=== PATIENT | female | born 1960 | race Caucasian/White ===

== ENCOUNTER 2025-01-24 14:58 | Inpatient (IN) | payer MEDICARE, OTHER ==
[~2025-01-24] VITALS: Ht 170.2 cm; Wt 89.1 kg
[2025-01-24 14:47] VITALS: BP 154/74; PULSE 84; RESP 17; TEMP 96.4; O2SAT 96
[2025-01-24 15:30] VITALS: RESP 17; O2SAT 96
[2025-01-24] MEDS ORDERED: LEVO200T8 PO (15:45)
[2025-01-24] MEDS ORDERED: INSU100V49 SQ (15:45)
[2025-01-24] MEDS ORDERED: METO-395 PO (15:45)
[2025-01-24] MEDS ORDERED: LANTUS SQ (15:45)
[2025-01-24] MEDS ORDERED: INSU100V10 SQ (15:45)
[2025-01-24] MEDS ORDERED: ASPI-1265 PO (16:06)
[2025-01-24] MEDS ORDERED: LOSA50TA64 PO (16:06)
[2025-01-24] MEDS: ondansetron/PF 4mg/2ml inj IV PRN (16:49)
[2025-01-24] MEDS ORDERED: glucagon, human recombinant 1mg kit SUBCUT PRN (18:00)
[2025-01-24] MEDS ORDERED: dextrose 50%-water 50ml dispensing syringe IV PRN ×2 (18:00)
[2025-01-24] MEDS ORDERED: DEXTROSE 15 GM of carb/4 tabs (each vial/BOTTLE has 4 tablets) PO PRN ×2 (18:00)
[2025-01-24] MEDS ORDERED: ondansetron/PF 4mg/2ml inj IV PRN (18:25)
[2025-01-24] MEDS ORDERED: HYDROcodone/acetaminophen 5mg/325mg tablet PO PRN (18:25)
[2025-01-24] MEDS ORDERED: mag hydrox/Alum hydrox/simeth 30ml oral suspension PO PRN (18:25)
[2025-01-24] MEDS ORDERED: ondansetron 4mg rapidly disintigrating tab PO PRN (18:25)
[2025-01-24] MEDS ORDERED: bisacodyl 10mg suppository rectal RC PRN (18:25)
[2025-01-24] MEDS ORDERED: magnesium sulf-water 2g/50mL 50 ML IV PRN (18:25)
[2025-01-24] MEDS ORDERED: potassium Cl 40MEQ/1/2NS 520ml 520 ML IV PRN (18:25)
[2025-01-24] MEDS ORDERED: HYDROcodone/acetaminophen 10/325mg tab PO PRN (18:25)
[2025-01-24] MEDS ORDERED: magnesium Cl slow-release 64mg tablet PO PRN (18:25)
[2025-01-24] MEDS ORDERED: potassium Cl 20 mEq SR tablet PO PRN (18:25)
[2025-01-24] MEDS ORDERED: magnesium hydroxide 30ml (MOM) UD suspension PO PRN (18:25)
[2025-01-24] MEDS ORDERED: acetaminophen 650mg rectal suppository RC PRN (18:25)
[2025-01-24] MEDS ORDERED: magnesium sulf-water 4G/100mL 100 ML IV PRN (18:25)
[2025-01-24] MEDS ORDERED: sodium phosphate inj. 15 MMOL in dextrose 5%-water 250 ML IV PRN (18:30)
--- NOTE | 2025-01-24 18:38 | HISTORY AND PHYSICAL ---
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 Yesterday she was admitted to [facility], with diagnosis non-STEMI, diabetes mellitus noncontrolled, DKA, treated for this abnormalities, now patient is out of DKA, and she was transferred here for further evaluation and treatment regarding non- STEMI , today patient she was evaluated in our hospital by stockroom inventory clerk Dr. GIRON, and scheduled for cardiac catheterization in the morning. No shortness a breath no chest pain now no nausea no vomiting, she has history of hypothyroidism recent TSH normal, and chronic kidney disease secondary to diabetes mellitus, no history of cardiac surgeries or stents, she is on aspirin at home, has history of hypertension poor control. No additional complaint or concern. Allergies: Coded Allergies: chlorhexidine (Unverified Allergy, Severe, 01/24/25) chlorhexadine containing compounds per patient chloroquine (Unverified Allergy, Unknown, loss of vision, 01/24/25) diazepam (Unverified Allergy, Unknown, hallucinations, 01/24/25) docetaxel (Unverified Allergy, Unknown, 01/24/25) fluorouracil (Unverified Allergy, Unknown, 01/24/25) Active prescriptions I reviewed reconciled Home Medications Home Medications Active Reported Aspirin 81 Mg Tab.chew 1 Tab PO DAILY 30 Days Per pt takes every Wednesday, Wednesday, Wednesday AM Losartan Potassium 50 Mg Tablet 1 Tab PO DAILY Levothyroxine Sodium 200 Mcg Tablet 1 Tab PO QAM Insulin Lispro 100 Unit/Ml Vial 50 Units SQ DAILY per pt. and DON @ [facility] pttakes short acting insulin Per carb count;0 units for BS <100 BS 100 and > 1 unit short acting insulin for every 50 points over 150 and administer 1 unit of short acting insulin for every 10 gm of carbs eaten. Apidra (Insulin Glulisine) Unknown Strength Vial Unknown Dose SQ DAILY pt. states no longer taking Metoprolol Succinate 25 Mg Tab.sr.24h 1 Tab PO DAILY Lantus* (Insulin Glargine) 100 Unit/1 Ml Vial 20-25 Units SQ QAM pt. states she takes 19 units qam Past Medical History Past Medical History As in HPI Past Surgical History Surgical History Comment As in [facility] Past Social History Social History Comment No history of illicit drug use, no smoking no alcohol use, live with the family good social support Health Maintenance Health Maintenance Noncontributory ROS ROS Constitutional : no fever , no chills, or weakness. No diaphoresis. Allergic/Immunologic, no lymphadenopathy, no hives, no skin eruptions. Eyes, no recent visual changes, no eye pain, no photophobia. Ears, nose, mouth, throat, positive for sore throat, no nosebleed, no ear pain. Cardiovascular, no palpitations, skipped beats, chest pain, no peripheral edema, Respiratory, no dyspnea, orthopnea, cough, hemoptysis, chest wall pain. Gastrointestinal, no abdominal pain, nausea, vomiting, constipation or diarrhea. : no dysuria, hematuria, pelvic pain, urethral d/c. Endocrine, no polyuria, polydipsia, recent unintentional weight gain or loss. Hematologic/Lymphatic, no petechiae, no enlarged lymph nodes, no bone pain. Integumentary, no rash, no skin lesions, Musculoskeletal, no muscle aches, or pain, no muscle cramps, no recent change in gait Neurological, no dizziness, no headache, no syncope, no paresthesia. Psychiatric, no delusions, visual hallucinations, or hearing hallucinations. ROS - in rest is as in [facility]. Exam Vitals: Vital Signs Date Time Temp Pulse Resp B/P (MAP) Pulse Ox O2 Delivery O2 Flow Rate FiO2 01/24/25 15:12 83 01/24/25 14:47 96.4 17 154/74 (100) 96 Room Air Vital signs, stable ,afebrile. Pulse Oximetry reflects adequate oxygenation. General: well developed, well nourished. Awake , alert, and oriented x4, resting comfortably in the bed, in no acute distress . Skin: Warm, dry, no pallor, no rash or petechiae. HEENT: Atraumatic, normocephalic, EOMI, anicteric sclera B; pink conjunctiva; PERRLA, normal oropharynx, moist oral and nasal mucosa. Tympanic membrane , nose , throat clear. Neck: Trachea midline. Supple, full range of motion, no JVD, bruit , hepatojugular reflex , lymphadenopathy or masses, or other lesions Cardiac: Regular rhythm, regular rate no murmurs, rubs, or gallops. Normal S1 and S2, no S3 noticed. PMI is normal. Respiratory: Equal breath sounds bilaterally, no tachypnea; lungs clear to auscultation bilaterally, no wheezing ,rub or rales, or crackles. Chest wall is symmetric and without deformity. No signs of trauma. Chest wall is nontender. No signs of respiratory distress. Resonance is normal upon percussion bilaterally. Gastrointestinal: Abdomen symmetric, non-distended, soft, non-tender, normal bowel sounds x4 quadrant, normoactive, no hepatosplenomegaly , no masses , no bruit, no flank pain bilaterally. No voluntary guarding, rebound, or rigidity. No tenderness to percussion. No pulsatile masses. Equal femoral pulses. No Hanley's sign or McBurney point tenderness. Back; no CVA tenderness bilaterally, no deformities. Neck and back are without deformity as well. No tenderness noted on palpation of the spinous processes. Spinous processes are midline. Cervical, thoracic, and lumbar paraspinal muscles are not tender and are without spasm. : Not indicated Musculoskeletal: Extremities, normal range of motion, non-tender, muscle strength 5/5 x 4. Negative Homans signs bilaterally on lower extremity. Distal pulses full symmetrical, no clubbing, cyanosis , edema. Neurological: Speech is clear, alert, and oriented x 4. No motor or sensory deficit, deep tendon reflexes normal, cerebellar intact. Cranial nerves II-XII intact. Psych: Alert and or appropriate, normal affect. Vascular: Good distal pulses, which are equal x4; capillary refill less than 2 seconds. Lymphatic, no lymphadenopathy. Advance Care Planning Advanced Care plannin - 30 Minutes Additional Plan Assessment Non-STEMI Hypertension poor control Diabetes mellitus poor control Status post recent DKA, resolved now Hypothyroidism good control Hypophosphatemia Chronic kidney disease secondary to diabetes mellitus Plan Patient scheduled for cardiac catheterization in the morning by Dr. GIRON She is on aspirin statin heparin prophylactic dose PT evaluation and treatment Replace electrolytes Hyperglycemia sliding scale I reconciled home medications Control blood pressure DVT gastropathy prophylaxis addressed Sepsis Screening Reassessment Date: Jan 24, 2025 Date of Service: Jan 24, 2025 Billing Provider: JANETT SINGH MD Common Visit Codes: [id number] INP/OBS CARE (HIGH) JANETT SINGH MD Jan 24, 2025 18:38
[2025-01-24] MEDS: heparin, porcine 5000 units/ml vial SQ SCH (19:26)
[2025-01-24] MEDS: K and/or MAG REPLACEMENT MC SCH (19:26)
[2025-01-24] MEDS: HALLS - SOOTHE MENTHOL 1.8 MG cough drop LOZENGE MM PRN (19:32)
[2025-01-24] MEDS: normal saline 1000ml 1,000 ML IV SCH (19:32)
[2025-01-24] MEDS: docusate sod 100mg capsule PO SCH (19:33)
[2025-01-24 20:00] VITALS: RESP 11; O2SAT 93
[2025-01-24] MEDS: INSULIN LISPRO 100 UNIT/ML INSULN.PEN MULTI-DOSE SQ SCH (21:02)
[2025-01-24 22:00] VITALS: BP 147/67; PULSE 86; RESP 11; TEMP 97.6; O2SAT 93
[2025-01-24] MEDS: insulin glargine (Lantus) pen - multi-dose SQ SCH (22:33)
[2025-01-25] VITALS (15 sets, daily range): BP systolic 151–181; BP diastolic 65–140; PULSE 70–88; RESP 11–16; TEMP 97.4–98; O2SAT 94–96
[2025-01-25 06:55] LABS: APTT 25 SECONDS (22-32); INR 1.0 INR
[2025-01-25 06:58] LABS: MEAN PLATELET VOLUME 8.0 FL (7.4-10.4); RED CELL DISTRIBUTION WIDTH 15.7 % (11.5-14.5)
[2025-01-25 07:20] LABS: CHOL/HDL RATIO 3.6 (0.00-4.99); CREATININE 0.67 MG/DL (0.40-0.90); LDL CHOLESTEROL 60 MG/DL (50-100); PHOSPHORUS 1.4 MG/DL (2.3-4.5); PRO BRAIN NATRIURETIC PEPTIDE 1121 PG/ML (0-125); TOTAL CARBON DIOXIDE 20.5 MMOL/L (24-32); eCRCL 80 ML/MIN; eGFR 88 ML/MIN
[2025-01-25] MEDS: pantoprazole 40mg Tablet.DR PO SCH (08:00)
[2025-01-25] MEDS: metoprolol succinate 25mg (24-HOUR) SR. Tablet PO SCH (08:21)
--- NOTE | 2025-01-25 08:25 | CONSULTATION ---
DATE OF CONSULTATION: 01/24/2025 DICTATING PHYSICIAN: ANA LUISA GOLD DO CLINICAL HISTORY: This 64-year-old woman has been transferred from [facility] in [place] for further cardiac evaluation. She was admitted on 01/22/2025 because of diabetic ketoacidosis. She is a known type 1 diabetic, first diagnosed at age 43. She has recently been placed on a continuous insulin pump, but apparently the pump failed resulting in an admitting blood sugar of greater than 700. She has had excellent care for her diabetic problem, which has consisted of generous hydration and continuous low-flow insulin infusion until very recent switch over to intermittent subcutaneous insulin dosing. During her hospitalization, she has not experienced chest pain and there is no prior history of a cardiac disorder but serial cardiac enzymes reveal an increase in troponin to approximately 2.5. For that reason, she was transferred to this facility for further evaluation. ALLERGIES: SHE HAS MULTIPLE ALLERGIES WHICH INCLUDE CHLORHEXIDINE (DYSPNEA), CHLOROQUINE, DIAZEPAM (CAUSING HALLUCINATIONS), DOCETAXEL AND FLUOROURACIL (THE LATTER TWO BOTH CAUSING ANAPHYLAXIS). PAST MEDICAL AND SURGICAL HISTORY: She had an appendectomy as a child. She had a foreign body removed from the right leg as a child and she has been treated for left breast cancer 7 years ago. Treatment consisted of lumpectomy and radiation. SOCIAL HISTORY: Nonsmoker, nondrinker. REVIEW OF SYSTEMS: Otherwise unremarkable. PHYSICAL EXAMINATION: VITAL SIGNS: The most recent vital signs were blood pressure of 154/74, pulse 84, respiratory rate 17 and temperature 96.4. GENERAL APPEARANCE: An alert, cooperative woman who is somewhat more sedate than usual due to fatigue from hospitalization. HEENT: Pupils most likely reactive to light. Extraocular muscles intact. NECK: No obvious JVD. CARDIAC: No murmurs, gallops or rubs. CHEST: Clear to auscultation. ABDOMEN: Nontender. EXTREMITIES: No history of any edema. DIAGNOSTIC DATA: ECG is pending. LABORATORY DATA: Most recent blood sugar in the 100s. Her acidosis has been corrected. ASSESSMENT: * Recent DKA, now essentially controlled/managed optimally. * Elevation of troponin, which is small in size and may very well be underwriting sales representative of a type 2 [place] wherein physiologic stress is responsible for an "enzyme leak." PLAN: The patient will continue to receive hydration including a bicarbonate infusion prior to cardiac catheterization, which will most likely be performed sometime on 01/25/2025. ANA LUISA GOLD DO TID: [id number] RECEIPT: [id number] RIGOBERTO
[2025-01-25] MEDS: levoTHYROXINE 100mcg tablet PO SCH (09:26)
[2025-01-25] MEDS: sodium phosphate inj. 30 MMOL in dextrose 5%-water 250 ML IV PRN (11:27)
[2025-01-25] MEDS: vancomycin/NS 1 GM ADD-VANTAGE 250 ML IV SCH (12:00)
[2025-01-25] MEDS: ceFAZolin/D5W- 1GM premix 50 ML IV SCH (15:05)
--- NOTE | 2025-01-25 16:06 | PROGRESS NOTE ---
Daily Progress Note Providers to CC ~ no new complaint today resting comfortably in the bed Central Line/PICC still needed: No Heredia-Non Protocol Heredia Indications Met/Not Met: F/C Indications Not Met Antibiotic Timeout Antibiotic Ordered?: Yes MRSA Education MRSA Education Provided to pt: Yes Subjective As above Objective Vital Signs Date Time Temp Pulse Resp B/P (MAP) Pulse Ox O2 Delivery O2 Flow Rate FiO2 01/25/25 08:00 Room Air 01/25/25 06:00 98.0 81 12 166/81 (109) 95 Vital signs, stable ,afebrile. Pulse Oximetry reflects adequate oxygenation. General: well developed, well nourished. Awake , alert, and oriented x4, resting comfortably in the bed, in no acute distress . Skin: Warm, dry, no pallor, no rash or petechiae. HEENT: Atraumatic, normocephalic, EOMI, anicteric sclera B; pink conjunctiva; PERRLA, normal oropharynx, moist oral and nasal mucosa. Tympanic membrane , nose , throat clear. Neck: Trachea midline. Supple, full range of motion, no JVD, bruit , hepatojugular reflex , lymphadenopathy or masses, or other lesions Cardiac: Regular rhythm, regular rate no murmurs, rubs, or gallops. Normal S1 and S2, no S3 noticed. PMI is normal. Respiratory: Equal breath sounds bilaterally, no tachypnea; lungs clear to auscultation bilaterally, no wheezing ,rub or rales, or crackles. Chest wall is symmetric and without deformity. No signs of trauma. Chest wall is nontender. No signs of respiratory distress. Resonance is normal upon percussion bilaterally. Gastrointestinal: Abdomen symmetric, non-distended, soft, non-tender, normal bowel sounds x4 quadrant, normoactive, no hepatosplenomegaly , no masses , no bruit, no flank pain bilaterally. No voluntary guarding, rebound, or rigidity. No tenderness to percussion. No pulsatile masses. Equal femoral pulses. No Hanley's sign or McBurney point tenderness. Back; no CVA tenderness bilaterally, no deformities. Neck and back are without deformity as well. No tenderness noted on palpation of the spinous processes. Spinous processes are midline. Cervical, thoracic, and lumbar paraspinal muscles are not tender and are without spasm. Musculoskeletal: Extremities, normal range of motion, non-tender, muscle strength 5/5 x 4. Negative Homans signs bilaterally on lower extremity. Distal pulses full symmetrical, no clubbing, cyanosis , edema. Neurological: Speech is clear, alert, and oriented x 4. No motor or sensory deficit, deep tendon reflexes normal, cerebellar intact. Cranial nerves II-XII intact. Psych: Alert and or appropriate, normal affect. Vascular: Good distal pulses, which are equal x4; capillary refill less than 2 seconds. Lymphatic, no lymphadenopathy. Result Diagram: 01/25/25 0625 01/25/25 0625 Coagulation Studies Laboratory Tests Test 01/25/25 06:25 Prothrombin Time 10.1 SECONDS (9.0-12.0) INR International Normalized Ratio 1.0 INR Activated Partial Thromboplast Time 25 SECONDS (22-32) Coagulation Comments Problem\Assessment\Plan Assessment Non-STEMI Blood culture positive for staph infection Hypertension poor control Diabetes mellitus poor control Status post recent DKA, resolved now Hypothyroidism good control Hypophosphatemia Chronic kidney disease secondary to diabetes mellitus Plan Patient scheduled for cardiac catheterization today by Dr. GIRON She is on aspirin heparin prophylactic dose Patient allergic to statin Started on IV antibiotics, infectious disease doctor consultation pending PT evaluation and treatment Replace electrolytes Hyperglycemia sliding scale I reconciled home medications Control blood pressure DVT gastropathy prophylaxis addressed Sepsis Screening Reassessment Date: Jan 25, 2025 Date of Service: Jan 25, 2025 Billing Provider: JANETT SINGH MD Common Visit Codes: [id number] INP/OBS CARE(HIGH) JANETT SINGH MD Jan 25, 2025 16:06
[2025-01-25] MEDS ORDERED: verapamil 2.5 mg/ml inj IV ONE (16:16)
[2025-01-25] MEDS ORDERED: LIDOcaine 1% (10mg/ml) 2ml vial ONE (16:16)
[2025-01-25] MEDS ORDERED: midazolam 1 mg/ML 2ml injection ONE ×2 (16:17→17:45)
[2025-01-25] MEDS ORDERED: heparin 1,000unit/ml 10ml vial 10 ML ONE (16:17)
[2025-01-25] MEDS ORDERED: fentaNYL/PF 50MCG/1 ML 2ML syringe ONE (16:17)
[2025-01-25] MEDS ORDERED: nitroGLYCERIN 500mcg/5mL D5W 5 ML IV ONE (16:17)
[2025-01-25] MEDS ORDERED: iohexol 350 MG/ML 50ML vial IV ONE ×2 (16:17→17:48)
[2025-01-25] MEDS: sodium bicarbonate 1meq/ml inj 150 ML in dextrose 5%-water 1,000 ML IV SCH (16:36)
[2025-01-25] MEDS ORDERED: ondansetron/PF 4mg/2ml inj IV PRN (18:55)
[2025-01-25] MEDS: hydrALAZINE 20mg/ml inj. IV ONE (19:51)
[2025-01-25] MEDS: ondansetron/PF 4mg/2ml inj IV PRN (20:50)
[2025-01-26 02:00] VITALS: BP 136/52; PULSE 73; RESP 18; TEMP 97.6; O2SAT 98
[2025-01-26 02:15] VITALS: BP 136/52; PULSE 73; RESP 18; TEMP 97.6; O2SAT 98
[2025-01-26 06:00] VITALS: BP 162/80; PULSE 76; RESP 18; TEMP 97.3; O2SAT 95
[2025-01-26 06:24] LABS: MEAN PLATELET VOLUME 7.9 FL (7.4-10.4); RED CELL DISTRIBUTION WIDTH 15.1 % (11.5-14.5)
[2025-01-26 06:49] LABS: CREATININE 0.47 MG/DL (0.40-0.90); PHOSPHORUS 1.6 MG/DL (2.3-4.5); TOTAL CARBON DIOXIDE 26.0 MMOL/L (24-32); eCRCL 115 ML/MIN; eGFR > 90 ML/MIN
[2025-01-26 07:43] VITALS: RESP 18; O2SAT 95
[2025-01-26 07:46] VITALS: BP_SYST 162; PULSE 72
[2025-01-26] MEDS: potassium Cl 20 mEq SR tablet PO PRN (07:46)
--- NOTE | 2025-01-26 09:36 | PROGRESS NOTE ---
Progress Note Cardiology Providers to CC ~ Subjective Subjective No CP Objective Result Diagram: 01/26/25 0550 01/26/25 0550 Objective VSS Coagulation Studies Laboratory Tests Test 01/25/25 06:25 Prothrombin Time 10.1 SECONDS (9.0-12.0) INR International Normalized Ratio 1.0 INR Activated Partial Thromboplast Time 25 SECONDS (22-32) Coagulation Comments Problem\Assessment\Plan Additional Plan Doing well KCl being given Home this AM Med regimen discussed with patient. ANA LUISA GOLD DO Jan 26, 2025 09:36
[2025-01-26] MEDS ORDERED: POTA-205 PO (09:45)
[2025-01-26] MEDS ORDERED: ONDA-243 PO (09:45)
[2025-01-26] MEDS ORDERED: TICA90TA PO (09:45)
[2025-01-26] MEDS ORDERED: CLOP-32 PO (09:45)
[2025-01-26] MEDS: potassium Cl 20 mEq SR tablet PO ONE (10:52)
--- NOTE | 2025-01-26 13:16 | CARDIOLOGY REPORT ---
DATE OF SERVICE: 01/25/2025 DICTATING PHYSICIAN: ANA LUISA GOLD, DO CARDIAC CATHETERIZATION REPORT CLINICAL HISTORY: This 64-year-old woman with no prior history of coronary problems was admitted earlier this week for diabetic ketoacidosis. She has never had that problem in the past but has been a type 1 diabetic since age 43. She has recently been placed on a diabetic pump which was dysfunctional, prompting her DKA which has now been corrected and appropriately managed. During the early phase of her hospitalization, she had serial cardiac enzymes drawn and her troponin was elevated to 2.5. She has not had chest pain, but because of her long history of diabetes and the presence of an elevated troponin, a decision was made to proceed to left heart catheterization. PROCEDURES PERFORMED: * Left heart catheterization. * Left ventriculography. * Selective coronary arteriography. * PTCA/stent placement. * One hour and 15 minutes conscious sedation supervision. DESCRIPTION OF PROCEDURE: The patient was sedated with fentanyl and Versed. She was then prepared and draped in the usual manner. The right radial area was infiltrated with 1% lidocaine using a micropuncture set in a Seldinger technique. A 6-Ethiopian sheath was placed in the radial artery. Nitroglycerin 200 mcg and 2.5 mg of verapamil were directly injected into the radial artery. Heparin 5,000 units were given in a peripheral IV. Left heart catheterization and left ventriculography were performed using a 6-Ethiopian Pigtail catheter. Coronary arteriography was performed using a 6-Ethiopian Kimny catheter. PTCA/STENT PLACEMENT: The patient was given an additional 5,000 units of heparin. A 6-Ethiopian 3.5 XB LAD guiding catheter was placed in the left coronary ostium. A Choice PT2 guidewire was passed down through a stenosis in the mid LAD and the tip was positioned distally. A 2.75 x 20 mm Joanna Floriston drug-eluting stent was positioned across the area of narrowing and lesser degree of narrowing above and below the stenosis. Just as the balloon was about to be inflated, it was inadvertently pulled back into the left main and into the proximal LAD. It was deployed in this location and appeared to be satisfactorily opposed in this area. The guidewire was retained and a second 2.75 x 20 mm drug-eluting stent was positioned across the mid LAD stenosis and deployed at 18 atmospheres. Test injections demonstrated full inflation of the stent and no residual stenosis and brisk runoff distally. The inadvertently proximally placed stent was postdilated with a 3 x 15 mm balloon inflated to 10 atmospheres in an overlapping fashion. There appeared to be excellent apposition in all areas. Since this overlapped the origin of the circumflex coronary artery, the guidewire was withdrawn and passed into the circumflex, and the orifice of the circumflex was dilated at 4 atmospheres with a 3.5 x 8 mm balloon. Final arteriography was performed. The arterial sheath was removed and Vasc band was applied. RESULTS: Hemodynamic data of the left ventricular and diastolic pressure was 14 mmHg. There was no gradient across the aortic valve. LEFT VENTRICULOGRAM: The left ventriculogram was technically satisfactory. The ejection fraction appeared to be about 65%. Calcium was visible in the proximal LAD. CORONARY ARTERIOGRAPHY: The coronary arteriograms are technically satisfactory. The patient had a right dominant system. RIGHT CORONARY ARTERY: The right coronary artery was a medium-sized main stem vessel. There was a medium-sized posterior descending branch and one small posterolateral branch. There were no obstructive lesions in the right coronary artery. LEFT MAIN CORONARY ARTERY: The left main was a large unobstructed vessel bifurcating into left anterior descending and circumflex coronary arteries. LEFT ANTERIOR DESCENDING CORONARY ARTERY: The LAD was a medium-sized vessel with a [id number]-sized diagonal branch which took its origin from the mid LAD. Further downstream in the mid LAD, there was a 70% to 90% stenosis with a 90% narrowing being at the far end of the narrowing. The principal diagonal appeared to be narrowed by about 40% at its origin, but there were no other high-grade stenoses in the LAD other than that observed in the mid mainstem vessel. CIRCUMFLEX CORONARY ARTERY: The circumflex was a large main stem vessel. There was a very large bifurcated obtuse marginal branch and two very small posterolateral branches. There were no obstructive lesions in the circumflex coronary artery. PTCA/STENT PLACEMENT: After ultimately stenting the mid LAD stenosis, there was no significant residual stenosis and brisk runoff distally. After deployment of the stent in the proximal circ and distal left main, and after post dilating with a 3.5 mm balloon, there was no significant residual stenosis, and after dilating the ostium of the circumflex coronary artery, there was no obvious residual stenosis in that location either. CONCLUSIONS: * Obstructive coronary artery disease principally manifested as a 70% to 90% stenosis in the mid LAD and about a 40% narrowing at the origin of a large bifurcated principal LAD diagonal. * Successful stent placement across the mid LAD stenosis. Following deployment, there was no significant residual stenosis and brisk runoff distally. [place] flow was graded as 3 before and afterwards. After deployment and post dilation of the distal left main/proximal LAD, there was no significant residual stenosis, and the stent appeared to be well apposed in all areas. Following balloon dilation of the circumflex ostium, there was no significant residual stenosis and brisk runoff distally. * Left ventricular function was normal. Estimated LVEF was 65%. PLAN: Ongoing medical therapy. ANA LUISA GOLD DO TID: [id number] RECEIPT: [id number] SHONDA/SHARITA
--- NOTE | 2025-01-26 19:02 | DISCHARGE SUMMARY ---
Discharge Summary Providers to CC No new complaint today cleared by profile trimmer to go home ~ Discharge Summary Assessment Non-STEMI, status post cardiac catheterization, stent placement Hypertension poor control Diabetes mellitus poor control Status post recent DKA, resolved now Hypothyroidism good control Hypophosphatemia Chronic kidney disease secondary to diabetes mellitus Admission Diagnosis: NSTEMI DM Admission Diagnosis Comment: Non-STEMI, status post cardiac catheterization, stent placement Hypertension poor control Diabetes mellitus poor control Status post recent DKA, resolved now Hypothyroidism good control Hypophosphatemia Chronic kidney disease secondary to diabetes mellitus Hospital Course DATE OF ADMISSION: January 24, 2025 DATE OF DISCHARGE: January 26, 2025 Discharge Diagnosis\Comment: Non-STEMI, status post cardiac catheterization, stent placement Hypertension poor control Diabetes mellitus poor control Status post recent DKA, resolved now Hypothyroidism good control Hypophosphatemia Chronic kidney disease secondary to diabetes mellitus Operations\Procedures: Cardiac catheterization stent placement Consultants: [employer] Dr. 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 Yesterday she was admitted to [facility], with diagnosis non-STEMI, diabetes mellitus noncontrolled, DKA, treated for this abnormalities, now patient is out of DKA, and she was transferred here for further evaluation and treatment regarding non- STEMI , today patient she was evaluated in our hospital by profile trimmer Dr. NELI BELTRAN, and scheduled for cardiac catheterization in the morning. No shortness a breath no chest pain now no nausea no vomiting, she has history of hypothyroidism recent TSH normal, and chronic kidney disease secondary to diabetes mellitus, no history of cardiac surgeries or stents, she is on aspirin at home, has history of hypertension poor control. No additional complaint or concern. After admission patient was extensively evaluated and treated including cardiac catheterization stent placement today she was cleared by profile trimmer for discharge, medication reconciled, today on physical exam Vital signs, stable ,afebrile. Pulse Oximetry reflects adequate oxygenation. General: well developed, well nourished. Awake , alert, and oriented x4, resting comfortably in the bed, in no acute distress . Skin: Warm, dry, no pallor, no rash or petechiae. HEENT: Atraumatic, normocephalic, EOMI, anicteric sclera B; pink conjunctiva; PERRLA, normal oropharynx, moist oral and nasal mucosa. Tympanic membrane , nose , throat clear. Neck: Trachea midline. Supple, full range of motion, no JVD, bruit , hepatojugular reflex , lymphadenopathy or masses, or other lesions Cardiac: Regular rhythm, regular rate no murmurs, rubs, or gallops. Normal S1 and S2, no S3 noticed. PMI is normal. Respiratory: Equal breath sounds bilaterally, no tachypnea; lungs clear to auscultation bilaterally, no wheezing ,rub or rales, or crackles. Chest wall is symmetric and without deformity. No signs of trauma. Chest wall is nontender. No signs of respiratory distress. Resonance is normal upon percussion bilaterally. Gastrointestinal: Abdomen symmetric, non-distended, soft, non-tender, normal bowel sounds x4 quadrant, normoactive, no hepatosplenomegaly , no masses , no bruit, no flank pain bilaterally. No voluntary guarding, rebound, or rigidity. No tenderness to percussion. No pulsatile masses. Equal femoral pulses. No Hanley's sign or McBurney point tenderness. Back; no CVA tenderness bilaterally, no deformities. Neck and back are without deformity as well. No tenderness noted on palpation of the spinous processes. Spinous processes are midline. Cervical, thoracic, and lumbar paraspinal muscles are not tender and are without spasm. Musculoskeletal: Extremities, normal range of motion, non-tender, muscle strength 5/5 x 4. Negative Homans signs bilaterally on lower extremity. Distal pulses full symmetrical, no clubbing, cyanosis , edema. Neurological: Speech is clear, alert, and oriented x 4. No motor or sensory de ficit, deep tendon reflexes normal, cerebellar intact. Cranial nerves II-XII intact. Psych: Alert and or appropriate, normal affect. Vascular: Good distal pulses, which are equal x4; capillary refill less than 2 seconds. Lymphatic, no lymphadenopathy. *Problems/Diagnosis: (1) NSTEMI (non-ST elevated myocardial infarction) Total Time Spent on D/C: > 30 Minutes Date of Service: Jan 26, 2025 Billing Provider: JANETT SINGH MD Common Visit Codes: 21187-KBA/OBS DISCH DAY >30min JANETT SINGH MD Jan 26, 2025 19:02
--- NOTE | 2025-01-26 20:28 | DISCHARGE SUMMARY ---
DATE OF DISCHARGE: 01/26/2025 DICTATING PHYSICIAN: CEDRIC GOLD DO ADMITTING DIAGNOSES: * Non-ST elevation myocardial infarction. * Recent diabetic ketoacidosis. * Diabetes mellitus. PROCEDURES PERFORMED: Left heart catheterization with PTCA/stent placement. CONSULTATIONS: Cedric Gold DO COMPLICATIONS: None. CONDITION AT DISCHARGE: Stable. CLINICAL HISTORY: This 64-year-old woman has recently been placed on an insulin pump and due to a malfunction of the device, she developed marked hyperglycemia and subsequent diabetic ketoacidosis. She was initially admitted at [facility] in [place], but then transferred on 01/24 to [facility]. The ketoacidosis had at that point been very nicely managed and she was stable. Serial cardiac enzymes were obtained during her hospitalization in [place]. She had an elevation of standard sensitivity troponin to 2.5. She did not experience chest pain or EKG changes, but because of the troponin and because of known diabetes since age 43, a decision was made to transfer the patient and perform a left heart catheterization. The catheterization was performed on 01/25/2025. The ejection fraction was 65%. There was a 70-90% stenosis in the mid LAD, a nonobstructive lesion at the origin of a large LAD diagonal. She had successful stenting of the mid LAD narrowing. There was an inadvertent pullback of a first stent that was deployed in the distal left main and proximal LAD, but it was dilated up to the size of the vessel without difficulty and there were no untoward events as a result of this occurrence. The remainder of her hospitalization was unremarkable and she was discharged in stable condition on 01/26/2025. Her discharge medications include Brilinta 90 mg p.o. twice a day, aspirin 81 mg daily, potassium chloride 10 mEq p.o. twice a day, Zofran 4 mg p.o. every 4 hours p.r.n. nausea, Losartan 50 mg daily, pantoprazole 40 mg daily, atorvastatin 20 mg daily. 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 She will have a follow up appointment with vt in 2-3 weeks. CEDRIC GOLD DO TID: [id number] RECEIPT: [id number] RP/VUN
[2025-01-26] MEDS ORDERED: VANCOMYCIN LEVEL IV ONE (23:30)
== END 2025-01-26 11:20 | disposition home or self-care (01) | DRG 322 ==
LOC: UNDOADMIN 14:58 → PCU 3S 14:58
PROVIDERS: ADMIT Internal Medicine Cardiovascular Disease; ATTEND Internal Medicine Cardiovascular Disease
PROC: 027035Z Dilation of Coronary Artery, One Artery with Two Drug-eluting Intraluminal Devices, Percutaneous Approach (ICD-10-PCS; principal; 2025-01-25)
PROC: 4A023N7 Measurement of Cardiac Sampling and Pressure, Left Heart, Percutaneous Approach (ICD-10-PCS; 2025-01-25)
PROC: B2111ZZ Fluoroscopy of Multiple Coronary Arteries using Low Osmolar Contrast (ICD-10-PCS; 2025-01-25)
PROC: B2151ZZ Fluoroscopy of Left Heart using Low Osmolar Contrast (ICD-10-PCS; 2025-01-25)
PROC: 05HB33Z Insertion of Infusion Device into Right Basilic Vein, Percutaneous Approach (ICD-10-PCS; 2025-01-25)
PROC: B54MZZA Ultrasonography of Right Upper Extremity Veins, Guidance (ICD-10-PCS; 2025-01-25)
PROC: 02703ZZ Dilation of Coronary Artery, One Artery, Percutaneous Approach (ICD-10-PCS; 2025-01-25)
DX: I21.4 Non-ST elevation (NSTEMI) myocardial infarction (principal); B95.8 Unspecified staphylococcus as the cause of diseases classified elsewhere; E03.9 Hypothyroidism, unspecified; E10.22 Type 1 diabetes mellitus with diabetic chronic kidney disease; E10.65 Type 1 diabetes mellitus with hyperglycemia; E83.39 Other disorders of phosphorus metabolism; I12.9 Hypertensive chronic kidney disease with stage 1 through stage 4 chronic kidney disease, or unspecified chronic kidney disease; I25.10 Atherosclerotic heart disease of native coronary artery without angina pectoris; N18.9 Chronic kidney disease, unspecified; Z96.41 Presence of insulin pump (external) (internal); Z79.02 Long term (current) use of antithrombotics/antiplatelets; Z79.4 Long term (current) use of insulin; Z79.82 Long term (current) use of aspirin; Z79.899 Other long term (current) drug therapy; Z90.49 Acquired absence of other specified parts of digestive tract; Z95.5 Presence of coronary angioplasty implant and graft
CPT/HCPCS: 93458; C9600; 36410; 36415; 76937; 80048; 80061; 82948; 83036; 83605; 83735; 83880; 84100; 84484; 85025; 85610; 85730; 87040; 87081; 99152; 99153; A6258; C1725; C1751; C1769; C1874; C1894; G0378; J0360; J0690; J1644; J1815; J2003; J2250; J2405; J3010; J3490; J7030; J7040; J7060; J7070; Q9967